=== PATIENT | female | born 1940 | race Caucasian/White ===

== ENCOUNTER → 2016-12-31 | Outpatient (CLI) | payer MEDICARE, OTHER ==
[~2016-12-31] MED LIST: ASPIRIN EC81 MG PO; BACTRIM DS1 TAB PO; COUMADIN ** IA5 MG PO; ELIQUIS5 MG PO; HYGROTON25 MG PO; K-TAB 10MEQ10 MEQ PO; LEVOTHROID (S137 MCG PO; LIPITOR10 MG PO; LIPITOR20 M1 PO; METOPROLOL TART25 MG PO; NORCO 10-325 T1 EACH PO; NORVASC5 MG PO; OCUVITE EYE +1 EACH PO; PRILOSEC20 MG PO; TIKOSYN250 MCG PO; TOPROL XL 5050 MG PO; VITAMIN D-32000 UNI1 PO
--- NOTE | ~2016-12-31 | PUL ---
PATIENT'S NAME: SHONDA BACK [facility] AGE: 76 Y [address] ROOM: [place] [address] LOCATION: [facility] ADMIT DATE: 12/31/2016 Pulmonary DISCHARGE DATE: FAMILY PHYSICIAN: Toya Molina MD ATTENDING PHYSICIAN: Xochitl Farias NAME OF PROCEDURE: Home sleep test DATE OF PROCEDURE: 12/31/2016 TECH: Karley Mireles [facility] SUMMARY: Patient underwent home sleep testing using a type III device and was studied for 8 hours 56 minutes. In that time there were 76 apneas and 81 hypopneas for an apnea/hypopnea index moderately elevated at 17.5 events per hour. Oxygen saturations ranged from 54-91 beats per minute. Saturations were below 88% for more than 5 minutes. Heart rate ranged from 41 to 158 beats per minute. IMPRESSION: Moderate obstructive sleep apnea. PLAN: The patient will receive results from the ordering provider. MD MARIA ELENA JACOBSON/ /[id number] dtt: 01/14/17 0948 Alexis David E. dtd: 01/10/17 1556
== END | disposition disaster alternative care site (69) ==
LOC: GSLP 12-22 13:34
DX: G47.33 Obstructive sleep apnea (adult) (pediatric) (principal)
CPT/HCPCS: G0399